=== PATIENT | female | born 1990 ===

== ENCOUNTER → 2017-11-07 | Outpatient (REF) | payer OTHER | LOC: ZZSENDIN 09:28 | PROVIDERS: ATTEND Physician Assistant | DX: R10.84 Generalized abdominal pain (principal) | CPT/HCPCS: 83690 ==

== ENCOUNTER → 2017-11-11 | Outpatient (CLI) | payer OTHER ==
--- NOTE | 2017-11-11 08:27 | RADIOLOGY IMAGING REPORT ---
FACILITY: [facility] PATIENT NAME: Zoila Brandt : 1990 MR: [id number] V: [id number] EXAM DATE: ORDERING PHYSICIAN: JULIO CÉSAR SAUCEDO TECHNOLOGIST: Location: [facility] Patient: Zoila Brandt : 1990 Visit/Account:[id number] Date of Sevice: 11/11/2017 Exam type: KUB SINGLE VIEW ABDOMEN History: Left upper quadrant pain x2 years Comparison: CT abdomen pelvis September 22, 2015. Findings: A large amount of fecal material seen throughout the colon likely related to constipation.. No gross evidence of organomegaly or pathologic intra-abdominal calcification. Visualized bones are grossly unremarkable. IMPRESSION: 1. Large amount of fecal material seen throughout the colon likely related to constipation. Report Dictated By: Kimmy Alfaro MD at 11/11/2017 8:21 AM Report E-Signed By: Kimmy Alfaro MD at 11/11/2017 8:23 AM WSN:[email or web address]
== END ==
LOC: RAD 07:53
PROVIDERS: ATTEND Physician Assistant
DX: K59.00 Constipation, unspecified (principal)
CPT/HCPCS: 74018